=== PATIENT | female | born 1990 | race Caucasian/White ===

== ENCOUNTER 2024-06-14 15:55 | Emergency (ER) | payer BC, SELFPAY ==
[2024-06-14 16:03] VITALS: BP 156/93
--- NOTE | 2024-06-14 16:07 | ED.PDOC.TRB ---
ED Provider Triage
-
Patient seen by provider in Triage?: Seen in Triage
A medical screening examination has been initiated by a qualified medical provider. Based on the assessment performed at this time, it has been determined that an emergent medical condition may exist and the patient has been informed that further
medical evaluation and possible additional diagnostic testing may be needed.
HPI: This is a medical evaluation conducted in person to initiate diagnostic evaluation and provide initial therapeutics. Please see further documentation by the treating clinician.
GENERAL: Alert ,tearful
EYE: No visual abnormalities.
NECK: Trachea midline
ENT: No visible abnormalities.
LUNGS: No acute respiratory distress
NEUROLOGICAL: Alert and oriented
SKIN: no visible lesions.
MUSCULOSKELETAL: Moving extremities normally
PSYCH: Normal and appropriate interaction.
33-year-old female presenting to the emergency department today with concerns of vaginal bleeding over the past week in setting of early .Claims that she had her last menstrual cycle about 2 months ago. Had positive test last
week. Spoke with her metal ceiling builder who told to come to the ER for assessment. Has been having right-sided pelvic pain as well. Patient is miscarriage denies any chest pain shortness of breath. Ultrasound and labs ordered
[2024-06-14 16:29] LABS: % Basophils 0.4 % (0-2); % Immature Granulocytes 0.3 % (0-0.5); % Lymphocytes 29.8 % (20.5-51.1); % Monocytes 5.6 % (1.7-9.3); % Neutrophils 61.9 % (42.2-75.2); Absolute Eosinophils 0.2 10^3/uL (0-0.7); Absolute Lymphocytes 3.4 10^3/uL (1.2-3.4); Absolute Monocytes 0.6 10^3/uL (0.1-0.6); Hematocrit 34.5 % (37.0-47.0); Hemoglobin 11.7 g/dL (12.0-16.0); Mean Corp Hgb Conc. 33.9 g/dL (33.0-37.0); Mean Corpuscular Hgb 26.2 pg (27.0-31.0); Mean Corpuscular Volume 77.4 fL (81.0-99.0); Mean Platelet Volume 9.4 fL (7.4-10.4); Nucleated Red Blood Cells % 0 %; Platelet Count 317 10^3/uL (130-400); Red Blood Cell Count 4.46 10^6/uL (4.20-5.40); Red Cell Dist. Width 14.1 % (11.5-14.5); White Blood Cell Count 11.2 10^3/uL (4.8-10.8)
[2024-06-14 16:51] LABS: ALT (SGPT) 18 U/L (0-35); AST (SGOT) 19 U/L (14-36); Albumin 4.6 g/dl (3.5-5.0); Alkaline Phosphatase 67 U/L (38-126); Blood Urea Nitrogen 10 mg/dl (7-17); Calcium 9.9 mg/dl (8.4-10.2); Carbon Dioxide 24 mmol/L (22-30); Chloride 105 mmol/L (98-107); Glucose 117 mg/dl (70-99); Potassium 3.7 mmol/L (3.5-5.1); Sodium 142 mmol/L (135-145); Total Bilirubin 0.5 mg/dl (0.2-1.3); Total Protein 7.2 g/dl (6.3-8.2); eGFR > 60.00
[2024-06-14 17:06] LABS: Beta HCG Quantitative 907.72 mIU/ml
--- NOTE | 2024-06-14 22:14 | ED.GENMED ---
History of Present Illness
General
Chief Complaint: Vaginal Bleeding
Source: patient
Exam Limitations: none
Time Seen by Provider: 06/14/24 18:42
Nursing documentation reviewed up to this point in time: agreed with
History of Present Illness
History of Present Illness:
33-year-old female G4, with no significant chronic medical issues presents to the emergency room for spotting and positive test. Patient reports that her last normal menstrual period ended on 04/13�she said she had 9 days of
bleeding. She says that she was late for her next menstrual period began bleeding again 05/30 and bled for 7 days�she says she did not have unusually heavy bleeding, was not passing clots or tissue. She says that over the 2 weeks she has had some
spotting. Last week noticed some breast tenderness and so she took a test which was positive. She consulted with her wire inserter and was told to recheck test in a week given her recent unusual menstrual bleeding. Rechecked
test today and was once again positive and so she was referred to the ER to be evaluated. She has not had any abdominal pain. She is not bleeding at present. She denies any other complaints.
Review of Systems
Review of Systems
All Other Systems: ROS reviewed and negative except as documented in HPI and ROS
Constitutional: Denies fever
Respiratory: Denies trouble breathing
Cardiac: Denies chest pain
ABD/GI: Reports abdominal pain; Denies nausea or vomiting
: Reports bleeding; Denies flank pain
Musculoskeletal: Denies neck pain or back pain
Neurological: Denies headache
Phy Exam
Physical Exam
Physical Exam:
General: Awake, alert, oriented x3; no acute distress
Head: Normocephalic, atraumatic
Eyes: Conjunctiva normal, EOMI
Throat: Airway intact, handling secretions
Neck: Trachea midline, supple without meningismus
Lungs: Clear to auscultation bilaterally, no wheezing, rales, rhonchi
Heart: Regular rate and rhythm, no murmurs, gallops, or rubs
Abd: Soft, non distended, nontender
Neuro: Cranial nerves grossly intact, speech fluid
Skin: no rash
Extremities: No edema in extremities, equal pulses in all extremities
Scores
Heart Failure Risk
Heart Failure Risk Score: Not Applicable
Heart Score for Chest Pain Patients
STEMI patient?: Not applicable
Withdrawal Assessment of Alcohol
Withdrawal Assessment Completed?: Not applicable
Course
Orders/Labs/Results
Orders:
Orders
06/14/24 16:05
US W Transvaginal Urgent
Reason For Exam: pain right side/bleeding 2m by dates
06/14/24 16:19
Blood Group&Type Urgent
Beta HCG Quantitative Urgent
Is this a screen?: No
Complete Blood Count/With Diff Urgent
Comprehensive Metabolic Panel Urgent
06/14/24 18:39
ABO2 Urgent
BBK Wristband Number:
Associate notified that ABO2 has been ordered: [id number]
Date: 06/14/24
Time: 17:07
Revenue Officer ID: [id number]
Abnormal Lab Results
06/14/24
16:19
WBC 11.2 H 10^3/uL
(4.8-10.8)
Hgb 11.7 L g/dL
(12.0-16.0)
Hct 34.5 L %
(37.0-47.0)
MCV 77.4 L fL
(81.0-99.0)
MCH 26.2 L pg
(27.0-31.0)
Absolute Neuts (auto) 7.0 H 10^3/uL
(1.4-6.5)
Glucose 117 H mg/dl
(70-99)
06/14/24 16:19
06/14/24 16:19
Vital Signs
Initial and Last Documented VS:
Initial Vital Signs
Temp Pulse Resp BP Pulse Ox
36.7 C 92 18 156/93 98
06/14/24 16:03 06/14/24 16:03 06/14/24 16:03 06/14/24 16:03 06/14/24 16:03
Last Documented Vital Signs
Temp Pulse Resp BP Pulse Ox
36.7 C 92 18 156/93 98
06/14/24 16:03 06/14/24 16:03 06/14/24 16:03 06/14/24 16:03 06/14/24 16:03
MDM/Problems Addressed
Differential Diagnosis Includes:
Ectopic , missed AB, IUP with implantation bleeding
MDM/Problems Addressed:
33-year-old female presents with intermittent spotting for the past 2 weeks, positive test at home. Marginally hypertensive otherwise normal vitals here. Exam as above. Labs were sent off including a CBC which showed marginal anemia
with a hemoglobin 11.7, CMP normal. Beta-hCG quant 907 below discriminatory zone. She is Rh+. Sent for ultrasound which showed no IUP or adnexal masses� of unknown location. Discussed with BOTTOM CRANE OPERATOR she will need repeat ultrasound and hCG in
48 hours. Unfortunately unable to schedule expeditious office follow-up. Patient will return here to the ER for repeat testing. Advised to return early in the day with a full bladder. Spoke about return precautions all questions answered.
*Radiology
Radiology exam reviewed: radiology read reviewed
*Pulse Oximetry
Patient hypoxic: no
*Critical Care Note
Total Time (30-74mins, 75-104mins- exclusive of procedures): Not Applicable
Data Reviewed
Source: patient
Patient Management
Discussion with other providers: Walking Dragline Oiler (Discussed with STARS COORDINATOR)
ED Attending Note
-
Portions of this chart may have been created with voice recognition software.� Occasional wrong word or��sound alike� substitutions may have occurred due to the inherent limitations of voice recognition software.
Discharge Plan
Departure
Patient Disposition: Home (Routine Discharge)
Date of Disposition: 06/14/24
Time of Disposition: 19:59
Patient with high blood pressure during this ER visit?: Yes
Discharge Problem:
, location unknown
Instructions: hCG Test
Referrals:
Lety Yeager PA-C [Family Provider] -
Mary Anne Colon MD [Active] - Call in 1-3 days for appt (STARS COORDINATOR--call to establish future care)
Activity Restrictions/Additional Instructions:
YOU SHOULD RETURN TO THE ED IN 2 DAYS (06/16/24) TO HAVE REPEAT BLOOD WORK AND ULTRASOUND!
IF YOU HAVE WORSENING PAIN OR BLEEDING, RETURN IMMEDIATELY! YOU SHOULD AVOID STRENOUS ACTIVITY, CONTACT SPORTS, AND SEXUAL INTERCOURSE UNTIL LOCATION OF YOUR HAS BEEN ESTABLISHED.
Thank you for visiting the Emergency Department at [facility].
1. Please schedule a follow up appointment as directed. Call first thing tomorrow morning to make an appointment.
2. If indicated, please take your medications as instructed and indicated on discharge paperwork.
3. If any of your symptoms do not improve, or persist, or become more severe within 6-12 hours, please return to the emergency department for further care.
4. Please return to the emergency department if you develop a headache, neck pain/stiffness, fever greater than 100.4F, chest pain, shortness of breath, persistent nausea, vomiting, slurred speech, difficulty walking, numbness/tingling, weakness,
signs of infection or any other symptoms that are worrisome to you.
Please call [phone] if you have any questions.
Interventions
Interventions:
*Risk Screen - Suicide Last Done: 06/14/24 16:03
*General Assessment Last Done: 06/14/24 17:14
*Neglect/Abuse Screening Last Done: 06/14/24 16:09
*ED COVID-19 Vaccine History Last Done: 06/14/24 16:03
*Nursing Disposition Last Done: 06/14/24 20:00
ED-Female Genitourinary Assessment Last Done: 06/14/24 17:15
Discharge Date and Time
Discharge Date/Time: 06/14/24 20:00
Print Language: WOLOF
== END 2024-06-14 20:00 | disposition home or self-care (01) ==
LOC: EMR 15:55
PROVIDERS: Physician Assistant; EMERGENCY PHYSICIAN Emergency Medicine; FAMILY PHYSICIAN Physician Assistant
DX: O36.80X0 Pregnancy with inconclusive fetal viability, not applicable or unspecified (principal); O99.891 Other specified diseases and conditions complicating pregnancy; N64.4 Mastodynia; O99.019 Anemia complicating pregnancy, unspecified trimester; Z3A.00 Weeks of gestation of pregnancy not specified
CPT/HCPCS: 99284; 76801; 76817; 80053; 84702; 85025; 86900; 86901

== ENCOUNTER 2024-06-16 09:31 | Emergency (ER) | payer BC, SELFPAY ==
[2024-06-16 09:33] VITALS: BP 149/92
--- NOTE | 2024-06-16 09:49 | ED.GENMED ---
History of Present Illness
General
Chief Complaint: Problems
Time Seen by Provider: 06/16/24 09:49
History of Present Illness
History of Present Illness:
HPI: The patient was seen here in the ED 2 days ago with spotting and a positive test at home. Her last normal period ended on 04/13. She then bled for 7 days starting on 05/30. Her bleeding has improved. She has some vague back
discomfort.
EXAM:
GENERAL: Well appearing in no distress, elevated BMI
HEENT: Moist oral mucosa
CARDIOVASCULAR: No murmurs, normal heart rate, regular rhythm, No chest wall tenderness
PULMONARY: No respiratory distress, breath sounds are clear and equal
ABDOMEN: Soft with no peritoneal signs, no tenderness, no CVA tenderness
NEUROLOGIC: Excellent strength all extremities, no coordination deficits
PSYCHIATRIC: Appropriate mental status, normal insight and judgement
EXTREMITIES: Nontender, no edema, moves all extremities equally
SKIN: No rash, no lesions
TIME OF INITIAL ENCOUNTER: 10:10 AM
NUMBER AND COMPLEXITY OF PROBLEMS ADDRESSED AT THE ENCOUNTER
� Chronic conditions affecting care: GERD
� Acute Exacerbation and/or Progression of Chronic Illness: This is an acute problem
� Differential Diagnosis includes: Early , miscarriage,
AMOUNT AND/OR COMPLEXITY OF DATA TO BE REVIEWED AND ANALYZED
� I performed an independent evaluation of and my interpretation is:
EKG:
CT:
X-rays:
Laboratory Studies: hCG quant 1176
Other:
� Review of other/old records: I reviewed records. The ECG 2 days ago was 908. Ultrasound from 2 days ago showed no discrete IUP. B+ blood type
� Clinical information was obtained by an independent historian:
� Prescriptions/Medications Considered but not given:
� Further testing considered but not performed: Considered ultrasound imaging however Dr. Morrow recommended to hold off on ultrasound initially
RISK OF COMPLICATIONS AND/OR MORBIDITY OR MORTALITY OF PATIENT MANAGEMENT
� Social determinants of health affecting care: Lives at home
� Discussion with other providers: I discussed case with Dr. Loving is to follow-up with their group this coming week.
� Escalation of care including admission/observation vs risk of discharge considered: hCG from 2 days ago was 908 and today is 1176. I informed patient that we have still not rule out an ectopic . She is encouraged to
return here if worse. Overall she is hemodynamically stable and comfortable appearance at time of discharge.
Phy Exam
Physical Exam
Physical Exam:
See HPI
Course
Orders/Labs/Results
Orders:
Orders
06/16/24 09:55
US 1st Trimester Urgent
Comment:
Reason For Exam: early spotting; hCG 908 2d ago
06/16/24 10:38
HCG, Beta Quantitative [Beta HCG Quantitative] Urgent
Is this a screen?: No
Vital Signs
Initial and Last Documented VS:
Initial Vital Signs
Temp Pulse Resp BP Pulse Ox
98 F 73 18 149/92 99
06/16/24 09:33 06/16/24 09:33 06/16/24 09:33 06/16/24 09:33 06/16/24 09:33
Last Documented Vital Signs
Temp Pulse Resp BP Pulse Ox
98 F 73 18 149/92 99
06/16/24 09:33 06/16/24 09:33 06/16/24 09:33 06/16/24 09:33 06/16/24 11:17
Information
Weeks gestation: Weeks:
Location: Location: (unknown)
*Critical Care Note
Total Time (30-74mins, 75-104mins- exclusive of procedures): Not Applicable
ED Attending Note
-
Portions of this chart may have been created with voice recognition software.� Occasional wrong word or��sound alike� substitutions may have occurred due to the inherent limitations of voice recognition software.
Discharge Plan
Departure
Patient Disposition: Home (Routine Discharge)
Date of Disposition: 06/16/24
Time of Disposition: 12:28
Patient with high blood pressure during this ER visit?: Yes
Discharge Problem:
Bleeding in early
Instructions: Bleeding in Early (DC)
Referrals:
Lety Yeager PA-C [Family Provider] -
Mary Anne Colon MD [Active] - Follow up in 5-7 days
Activity Restrictions/Additional Instructions:
Call TEXTILE EXAMINER today to try to get an appointment for this coming week. I spoke to Dr. Colon. Return here if worse or any other concerns.
Interventions
Interventions:
*Risk Screen - Suicide Last Done: 06/16/24 10:40
*General Assessment Last Done: 06/16/24 09:36
*Neglect/Abuse Screening Last Done: 06/16/24 09:36
*ED COVID-19 Vaccine History Last Done: 06/16/24 09:36
ED-Female Genitourinary Assessment Last Done: 06/16/24 12:09
Discharge Date and Time
Print Language: CENTRAL AFRICAN
[2024-06-16 10:39] VITALS: BMI 42.0
== END 2024-06-16 12:50 | disposition home or self-care (01) ==
LOC: EMR 09:31
PROVIDERS: EMERGENCY PHYSICIAN Emergency Medicine; FAMILY PHYSICIAN Physician Assistant
DX: O20.9 Hemorrhage in early pregnancy, unspecified (principal)
CPT/HCPCS: 99282; 84702

== ENCOUNTER 2024-06-22 14:47 | Emergency (ER) | payer BC, SELFPAY ==
[2024-06-22 14:54] VITALS: BP 173/109
--- NOTE | 2024-06-22 15:17 | ED.GENMED ---
History of Present Illness
General
Chief Complaint: Problems
Source: patient
Time Seen by Provider: 06/22/24 15:01
History of Present Illness
History of Present Illness:
33-year-old presents to the emergency room complaining of vaginal spotting and bleeding. Patient has been experiencing the symptoms for the past week or so. Patient has been seen here in the emergency room a couple times for this. On her second
visit her quant had not gone up as much as expected from the first. An ultrasound on the initial visit was nondiagnostic. Patient states she did see an PROFILE GRINDER TECHNICIAN (not associate Danny) who recommended she have another ultrasound. Patient was unable
to schedule the ultrasound and what she perceives as a timely fashion prompting her to come to the emergency room for testing. Patient denies any abdominal pain, dizziness. G4, P2 with 1 miscarriage
Phy Exam
Physical Exam
Physical Exam:
General: Awake, Alert, Oriented X3. No acute distress.
Vitals: unremarkable
Head: Atraumatic
Eyes: Pupils equal, EOMI
Throat: Airway intact, no exudates
Neck: Trachea midline
Heart: Regular rate, no murmurs
Abd: Soft, Nontender, No pulsatile mass
Neuro: Nonfocal
Skin: Warm, dry, no rash
Extremities: pulses equal b/l, no edema
Course
Orders/Labs/Results
Orders:
Orders
06/22/24 15:16
US W Transvaginal Urgent
Reason For Exam: vag bleeding, abnormal quant elevation
06/22/24 15:24
HCG, Beta Quantitative [Beta HCG Quantitative] Urgent
Is this a screen?: No
06/22/24 20:00
Methotrexate Sodium/Pf [Methotrexate] 37.5 mg Syringe [Syringe Non-Pump] 0 ml IM BID@1999,2000
06/22/24 20:02
Methotrexate Sodium/Pf [Methotrexate] 35 mg Syringe [Syringe Non-Pump] 0 ml IM ONCE@2001
Vital Signs
Initial and Last Documented VS:
Initial Vital Signs
Temp Pulse Resp BP Pulse Ox
97.8 F 80 16 173/109 98
06/22/24 14:54 06/22/24 14:54 06/22/24 14:54 06/22/24 14:54 06/22/24 14:54
Last Documented Vital Signs
Temp Pulse Resp BP Pulse Ox
97.8 F 73 17 133/68 98
06/22/24 14:54 06/22/24 18:30 06/22/24 18:30 06/22/24 18:30 06/22/24 18:30
Information
Weeks gestation: Weeks: (unknown)
Location: Location: (ectopic)
MDM/Problems Addressed
Differential Diagnosis Includes:
Ectopic , miscarriage, intrauterine
MDM/Problems Addressed:
Patient presents with continued spotting, abnormally progressing hCG measurements. hCG was obtained here in the emergency room which shows that scratchy elevating but for slower than would be expected. An ultrasound shows an empty uterus with a
complex structure in the right adnexa very suggestive of an ectopic . Case was discussed with PROFILE GRINDER TECHNICIAN, Dr. Hatfield. She came and evaluated the patient and after discussing the patient's options with her the decision was made to proceed with
methotrexate. Dr. Hatfield ordered methotrexate. She will follow-up with Dr. Hatfield in the office.
*Radiology
Radiology exam reviewed: radiology read reviewed
*Pulse Oximetry
Patient hypoxic: no
*Critical Care Note
Total Time (30-74mins, 75-104mins- exclusive of procedures): Not Applicable
Patient Management
Social determinants of health affecting care: Strong social support
ED Attending Note
-
Portions of this chart may have been created with voice recognition software.� Occasional wrong word or��sound alike� substitutions may have occurred due to the inherent limitations of voice recognition software.
Discharge Plan
Departure
Patient Disposition: Home (Routine Discharge)
Date of Disposition: 06/22/24
Time of Disposition: 19:44
Patient with high blood pressure during this ER visit?: No
Condition: Good
Discharge Problem:
Ectopic
Instructions: Ectopic ED
Referrals:
Lety Yeager PA-C [Family Provider] -
Activity Restrictions/Additional Instructions:
You were found to have an ectopic ( developing outside of the uterus) which can become a life threatening condition. You were treated with a medication for this. You should return to the ER if you develop significant abdominal
pain, dizziness, or feel you are not doing well. Follow the instructions provided by Dr. Renee and follow up with her.
Interventions
Interventions:
*Risk Screen - Suicide Last Done: 06/22/24 15:29
*General Assessment Last Done: 06/22/24 15:29
*Neglect/Abuse Screening Last Done: 06/22/24 15:29
ED- Fall Risk Assessment Last Done: 06/22/24 19:21
*ED COVID-19 Vaccine History Last Done: 06/22/24 15:29
ED-Female Genitourinary Assessment Last Done: 06/22/24 19:21
Discharge Date and Time
Print Language: LATVIAN
[2024-06-22 15:30] VITALS: BP 124/88
[2024-06-22 18:30] VITALS: BP 133/68
--- NOTE | 2024-06-22 19:03 | CON.MD ---
Consultation - Medical
-
33yo presented to the ER for persistent spotting. She states that she was 18 days late for her menses, had a +UPT. Then had what seemed to be a period, and has been spotting ever since. She has been to the ER three times with this spotting and
her HCG has not been rising appropriately. She says she has rare mild cramping mainly in the RLQ. She has not needed to take any pain medication for this. She has mild nausea. No other complaints
HCG 06/14: 907
06/16: 1175.5
06/22: 2859.5
PMHx: None
PSHx: None
POBHx: SVDx2, SAB x1
SHx: No tob
FHx: Sister- ruptured ectopic
All: NKDA
Vitals: T97.8 P73 R17 BP 133/68 SpO2 98%RA
Gen: nad well appearing
Abd: no ttp, no r/g, soft, nd
Pelvic US 06/22: Uterus is normal, EMS 1.2cm. Left ovaru 3.2cm, Roght ovary 4.2cm. In the right adnexa between the ovary and uterus there is a hypoechoic rounded mass measuring 2x 1.3x 1.9cm with internal vascularity noted. No free fluid. Findings are
suspicious for an ectopic
labs from 06/14:
CBC: 11.2/11.7-34.5/317
AST/ALT:
Cr: 0.7
A/P: 33yo with likely Right ectopic
-reviewed HCGs and US findings with patient. I discussed that her HCGs have not risen appropriately so we can guarantee that this is not a normal , and with the findings on US today, there is high suspicion that this is an ectopic
. I reviewed mgmt of an ectopic to include medical vs surgical. She is hemodynamically stable and her HCG is not very high so I believe medical management is appropriate. I reviewed with her the use of methotrexate and the
potential side effects as well as activities and medications she should avoid after administration. I also made it clear that there is still a risk for rupture of the ectopic even after this therapy so she needs to call with any severe pain.
Reviewed as well the close follow up that is required to ensure HCGs drop appropriately. Reviewed the possibility of needing a second dose of MTX. Patient expressed understanding and is willing to proceed. Patient had travel plans next week. I
advised she should not travel until her HCG is negative. Also she should not try to conceive again until 3 months after MTX administration
Encounter and documentation time= 30 mins
[2024-06-22 19:27] VITALS: BMI 41.0
[2024-06-22] MEDS: METHOTREXATE 1.5 MG IM ×2 (20:28)
[2024-06-22] MEDS: METHOTREXATE 1.4 MG IM (20:29)
[2024-06-22 20:36] VITALS: BP 119/81
== END 2024-06-22 20:37 | disposition home or self-care (01) ==
LOC: EMR 14:47
PROVIDERS: EMERGENCY PHYSICIAN Emergency Medicine; FAMILY PHYSICIAN Physician Assistant; OTHER PHYSICIAN Obstetrics & Gynecology
DX: O00.90 Unspecified ectopic pregnancy without intrauterine pregnancy (principal); Z3A.00 Weeks of gestation of pregnancy not specified
CPT/HCPCS: 99284; 96372; 76801; 76817; 84702; J9260

== ENCOUNTER → 2024-06-25 11:00 | Outpatient (REF) | payer BC, SELFPAY | LOC: CLAB 11:00 | PROVIDERS: ATTENDING PHYSICIAN Obstetrics & Gynecology | DX: O00.80 Other ectopic pregnancy without intrauterine pregnancy (principal) | CPT/HCPCS: 84702 ==

== ENCOUNTER → 2024-06-28 11:44 | Outpatient (REF) | payer BC, SELFPAY | LOC: REG 11:44 | PROVIDERS: ATTENDING PHYSICIAN Obstetrics & Gynecology; FAMILY PHYSICIAN Physician Assistant | DX: O00.80 Other ectopic pregnancy without intrauterine pregnancy (principal) | CPT/HCPCS: 36415; 84702 ==

== ENCOUNTER → 2024-07-05 11:05 | Outpatient (REF) | payer BC, SELFPAY ==
[2024-07-05 12:08] LABS: Beta HCG Quantitative 697.38 mIU/ml
== END ==
LOC: REG 11:05
PROVIDERS: ATTENDING PHYSICIAN Obstetrics & Gynecology; FAMILY PHYSICIAN Physician Assistant
DX: O00.80 Other ectopic pregnancy without intrauterine pregnancy (principal)
CPT/HCPCS: 36415; 84702

== ENCOUNTER → 2024-07-12 14:08 | Outpatient (REF) | payer BC, SELFPAY ==
[2024-07-12 16:00] LABS: Beta HCG Quantitative 177.33 mIU/ml
== END ==
LOC: REG 14:08
PROVIDERS: ATTENDING PHYSICIAN Obstetrics & Gynecology; FAMILY PHYSICIAN Physician Assistant
DX: O00.80 Other ectopic pregnancy without intrauterine pregnancy (principal)
CPT/HCPCS: 36415; 84702

== ENCOUNTER → 2024-07-26 11:38 | Outpatient (REF) | payer BC, SELFPAY ==
[2024-07-26 13:03] LABS: Beta HCG Quantitative 21.55 mIU/ml
== END ==
LOC: REG 11:38
PROVIDERS: ATTENDING PHYSICIAN Obstetrics & Gynecology; FAMILY PHYSICIAN Physician Assistant
DX: O00.00 Abdominal pregnancy without intrauterine pregnancy (principal)
CPT/HCPCS: 36415; 84702